=== PATIENT | male | born 1985 | race American Indian/Alaskan Native ===

== ENCOUNTER 2021-04-24 06:24 | Emergency (ER) | payer SELFPAY ==
[2021-04-24] MEDS ORDERED: methylPREDNISolone Sod Succinate 125 MG/2 ML INJ IM ONE (07:41)
--- NOTE | 2021-04-24 07:45 | Emergency Department Report ---
ED Allergic Reaction HPI - General Chief complaint: Skin Rash Stated complaint: ALLERGIC REACTION TO HAIR DYE Time Seen by Provider: 04/24/21 07:31 Source: patient Mode of arrival: Ambulatory Limitations: No Limitations - History of Present Illness Initial Comments: 35-year-old male with a past medical history of eczema presents to the ER today with complaints of allergic reaction/rash. Patient states that he dyed he is here 4 days ago with a dyed that he is never used before. He states it was a black diet. He states that he rinsed the dye out in the shower. He states that later that day he started developed pruritic rash to his back. He states that when he looked at the box, it mentioned that urine is worse during the day out in the shower. Patient states that the rash has since gotten worse and has spread to involve his neck, chest, upper extremities, abdomen and lower extremities. He denies any facial involvement or any facial tongue or throat swelling. He denies any cough, wheezing difficulty breathing or swelling. He states that he has been taking Benadryl as well as using hydrocortisone cream from [id number] with little relief. Complaint: allergic reaction, other -: Gradual (4 days ago ) - Related Data Previous Rx's Medication Instructions Recorded Last Taken Type Famotidine [Pepcid] 20 mg PO BID #10 tablet 04/24/21 Unknown Rx predniSONE [Deltasone] 60 mg PO QDAY #12 tab 04/24/21 Unknown Rx Allergies Allergy/AdvReac Type Severity Reaction Status Date / Time No Known Allergies Allergy Unverified 04/24/21 06:32 ED Review of Systems ROS: Stated complaint: ALLERGIC REACTION TO HAIR DYE Other details as noted in HPI Comment: All other systems reviewed and negative Constitutional: denies: chills, diaphoresis, fever, malaise, weakness Eyes: denies: eye pain, eye discharge, vision change ENT: denies: ear pain, throat pain Respiratory: denies: cough, shortness of breath, SOB with exertion, SOB at rest, wheezing Cardiovascular: denies: chest pain, palpitations Gastrointestinal: denies: abdominal pain, nausea, vomiting, diarrhea, constipation, hematemesis, hematochezia Genitourinary: denies: urgency, dysuria, frequency, hematuria, discharge, testicular pain, testicular mass Skin: rash Psychiatric: denies: anxiety, depression, auditory hallucinations, visual hallucinations, homicidal thoughts, suicidal thoughts Hematological/Lymphatic: denies: easy bleeding, easy bruising ED Past Medical Hx - Past Medical History Previous Medical History?: No - Surgical History Past Surgical History?: No - Social History Smoking Status: Never Smoker - Medications Home Medications: Home Medications Medication Instructions Recorded Confirmed Last Taken Type Famotidine [Pepcid] 20 mg PO BID #10 tablet 04/24/21 Unknown Rx predniSONE [Deltasone] 60 mg PO QDAY #12 tab 04/24/21 Unknown Rx ED Physical Exam - General Limitations: No Limitations General appearance: alert, in no apparent distress - Head Head exam: Present: atraumatic, normocephalic, normal inspection - Eye Eye exam: Present: normal appearance, PERRL, EOMI Pupils: Present: normal accommodation - ENT ENT exam: Present: normal exam, mucous membranes moist - Neck Neck exam: Present: normal inspection, full ROM - Respiratory Respiratory exam: Present: normal lung sounds bilaterally. Absent: respiratory distress, wheezes, rales, rhonchi - Cardiovascular Cardiovascular Exam: Present: regular rate, normal rhythm, normal heart sounds - GI/Abdominal GI/Abdominal exam: Present: soft. Absent: distended, tenderness, guarding, rebound - Neurological Exam Neurological exam: Present: alert, oriented X3, CN II-XII intact, normal gait - Psychiatric Psychiatric exam: Present: normal affect, normal mood - Skin Skin exam: Present: rash (Patient has a diffuse, mildly erythematous, maculopap ular urticarial rash to neck, back, chest, abdomen, upper extremities and thighs) ED Course Vital Signs 04/24/21 06:29 Temperature 97.9 F Pulse Rate 71 Respiratory 18 Rate Blood Pressure 135/85 O2 Sat by Pulse 100 Oximetry Critical care attestation.: If time is entered above; I have spent that time in minutes in the direct care of this critically ill patient, excluding procedure time. ED Disposition Clinical Impression: Allergic reaction, Contact dermatitis Disposition: - TO HOME OR SELFCARE Is pt being admited?: No Does the pt Need Aspirin: No Condition: Stable Instructions: Contact Dermatitis, [id number] Additional Instructions: Take prednisone tomorrow as discussed. Take benadryl from over the counter 1-2 tablets every 6hrs as needed and take the pepcid at twice per day. Follow up with PCP listed on discharge instructions. Return to ED if worse. Prescriptions: predniSONE [Deltasone] 60 mg PO QDAY #12 tab Famotidine [Pepcid] 20 mg PO BID #10 tablet Referrals: ILAN BUENROSTRO MD [Staff Physician] - 3-5 Days Forms: Work/School Release Form(ED) Time of Disposition: 07:46
[2021-04-24 08:24] VITALS: BP 146/93
== END 2021-04-24 08:24 | disposition home or self-care (01) ==
LOC: ED 06:24
DX: L25.9 Unspecified contact dermatitis, unspecified cause (principal); Z79.899 Other long term (current) drug therapy
CPT/HCPCS: 96372; 99281; J2930

== ENCOUNTER 2021-05-12 06:28 | Emergency (ER) | payer SELFPAY | END 2021-05-12 11:31 | LOC: ED 06:28 ==